=== PATIENT | male | born 1930 | race Caucasian/White ===

== ENCOUNTER 2018-08-08 11:57 | Inpatient (IN) | payer OTHER ==
[~2018-08-08] VITALS: Ht 177.8 cm; Wt 86.2 kg
--- NOTE | ~2018-08-08 | H ---
[facility] [place] [address] HISTORY AND PHYSICAL Name: RAYMOND KAUFMAN Room #: 505-P ADM IN M.R.#: [id number] Admission: 08/08/18 Attend Phys: Oral Day MD Discharge: Date of : [birth year] Report #: [id number] THIS REPORT FOR: //name// CC: Harrison Day DATE OF SERVICE: 08/08/2018 POSTADMISSION PHYSICIAN EVALUATION HISTORY OF PRESENT ILLNESS: Please see Yocasta Franklin's full admission history and physical. The patient was transferred from [facility] and has end-stage renal disease, now on hemodialysis, combined systolic and diastolic congestive heart failure with bilateral lower extremity edema, cardiomyopathy, coronary artery disease, history of V-tach cardiac arrest, status post automatic implantable cardioverter defibrillator. He has premorbid peripheral neuropathy and history of lower extremity cellulitis. He is admitted with medical complexity and generalized debilitation. Please see the above noted past medical history, habits, and social history. He does live by himself and has a son who lives in [facility]. He was using a cane for short distances premorbidly and a walker longer distances. REVIEW OF SYSTEMS: No current complaints of chest pain, shortness of breath or abdominal discomfort. Notes some complaints of generalized overall weakness. PHYSICAL EXAMINATION: CHEST: Sounded clear to auscultation. CARDIOVASCULAR: Regular rate and rhythm. ABDOMEN: Bowel sounds are positive, nontender. NEUROMUSCULOSKELETAL: Upper and lower body strength are grade 4-/5. He is contact assistance for [id number], tends to fatigue fairly quickly. He does have some decreased sensation to light touch on bilateral distal lower extremities. ASSESSMENT AND PLAN: As noted. From a postadmission physician evaluation perspective, there are no relevant changes since the preadmission screening. Please see the above review of prior and current medical and functional conditions and comorbidities. The patient is at a lower functional level from his premorbid status, needs more assistance with mobility, fatigues more easily, and has the multiple medical comorbidities. As far as risk of complications, see the above noted list of comorbidities. He will be seen by the party plan sales consultant physicians for his medical care while on the rehab zhang. The initial plan of care involves the interdisciplinary acute inpatient rehabilitation program with the goal of maximizing his functional [address] [address] HISTORY AND PHYSICAL Name: RAYMOND KAUFMAN Room #: 505-P [facility] IN .R.#: [id number] Admission: 08/08/18 Attend Phys: Oral Day MD Discharge: Date of : [birth year]/19/[birth year] Report #: [id number] independence, so he can return back to the home setting. Measurable functional goals would be for the patient to become modified independent with transfers, mobility, ADLs at least at a walker level, so that he can return back to the home setting. Prognosis is reasonably good with estimated length of stay probably at least 7-10 days depending progress. Potential barriers would include his multiple medical comorbidities and decreased functional status. The patient meets diagnostic criteria for an acute in-hospital inpatient rehabilitation stay. He meets the medical necessity criteria and we will have the party plan sales consultant physicians continue to follow. He does have the tolerance for therapies and has appropriate discharge goals back to the home setting. <ELECTRONICALLY SIGNED> By: Oral Day MD 08/16/18 1048 [id number] Oral Day MD /nt
--- NOTE | ~2018-08-08 | H ---
[facility] [place] [address] HISTORY AND PHYSICAL Name: RAYMOND KAUFMAN Room #: 505-P ADM IN M.R.#: [id number] Admission: 08/08/18 Attend Phys: Oral Day MD Discharge: Date of : [birth year] Report #: [id number] THIS REPORT FOR: //name// CC: Harrison Day DATE OF SERVICE: 08/08/2018 HISTORY OF PRESENT ILLNESS: This is an 87-year-old gentleman who presented to [facility] with worsening shortness of air, worsening lower extremity edema. He was diagnosed with [id number]-vn-[id number] renal failure, lower extremity cellulitis and CHF exacerbation. He was seen by Nephrology. He was treated with diuretics. Kidney function to the point of needing dialysis and end-stage renal disease. A tunneled dialysis catheter in the right jugular was placed and he was started on Tuesday, Tuesday, Tuesday dialysis. His shortness of air improved. His lower extremity edema has improved. He is not on antibiotic. Due to decline in functional mobility, he is now admitted to [facility] acute inpatient rehabilitation for physical and occupational therapies. Today, the patient reports shortness of air with exertion. He does have fatigue with activity. He denies acute pain. He denies constipation, abdominal pain, nausea or dysuria. He still makes urine. He thinks his lower extremity edema is improved, but not resolved. PAST MEDICAL HISTORY: Coronary artery disease with history of non-STEMI, history of V-tach with resuscitation and a defibrillator placed, hypertension, hyperlipidemia, allergies seasonal, chronic kidney disease. HABITS: He is a nonsmoker, nondrinker, no illicit drug use. SOCIAL HISTORY: He is a . He lives in a house alone. He does have a son who is supportive, but does not live nearby. He has one entry stair from the front. He has 2 stairs to enter from the garage access, all living on one level. Once inside, he used single point cane for short distances as needed. He used a 4-wheel walker for longer community distances. He was independent with all ADLs and IADLs present to admission, he was still doing his own driving and shopping. MEDICATIONS: Potassium 20 mEq daily, lisinopril 20 mg daily, aspirin 81 mg daily, amiodarone 200 mg daily, metoprolol 25 mg twice a day, lactobacillus 1 capsule twice a day, senna 2 mg daily p.r.n., Colace 100 mg twice a day p.r.n., bisacodyl suppository p.r.n., Silvadene cream 1 gram daily p.r.n., Tylenol 650 q.6h. p.r.n. REVIEW OF SYSTEMS: Remainder of his 12-point review of systems is negative except as listed in HPI. [address] [address] HISTORY AND PHYSICAL Name: RAYMOND KAUFMAN Room #: 505-P ADM IN M.R.#: [id number] Admission: 08/08/18 Attend Phys: Oral Day MD Discharge: Date of : [birth year]/19/[birth year] Report #: [id number] PHYSICAL EXAMINATION: GENERAL: The patient is awake, alert. He is oriented x 4, does have a flat affect. He is in no acute distress. He is on room air. HEENT: Head is normocephalic. Eyes: EOMs are intact. No icterus. ENT: No sinus tenderness. CHEST: Lungs are clear to auscultation bilaterally. No crackles, no wheeze. CARDIAC: S1, S2 regular rate and rhythm. ABDOMEN: Bowel sounds are positive. Soft, nontender, nondistended. GENITOURINARY: No CVA tenderness. SKIN: He has a right tunneled catheter access. Dressing is clean, dry and intact. NEUROLOGIC: Cranial nerves 2-12 grossly intact. Face is symmetrical. EXTREMITIES: He has functional range of motion in bilateral upper and lower extremities. Equal strength bilaterally. Upper extremity strength grossly 4-4+/5. No clonus. Negative Homans sign. No foot drop. He sit to stand with contact guard assist. He is ambulating with a four-wheeled walker min assist, shuffling gait had been noted. He requires verbal cues for hand placement on the walker, easily fatigued with activity. Does have decreased sensation in bilateral lower extremities. Bilateral lower extremities with erythema, no warmth, positive edema. He has Tubigrip in place. ASSESSMENT: 1. Medical complexity with generalized debilitation. 2. End-stage renal disease, now on hemodialysis. 3. Combined systolic and diastolic congestive heart failure with bilateral lower extremity edema. 4. Cardiomyopathy with ejection fraction 40%-45%. 5. Coronary artery disease. 6. Hypertension. 7. Hyperlipidemia. 8. History of ventricular tachycardia/cardiac arrest, status post automatic implantable cardioverter defibrillator implantation. 9. Premorbid peripheral neuropathy. 10. Anemia. 11. Lower extremity cellulitis. PLAN: The patient has been admitted to acute inpatient rehabilitation for physical and occupational therapies. We will consult hospitalist services for medical management. We will consult Nephrology for dialysis management. He will have neuropsychology testing as the patient was working up until 2-[address] [address] HISTORY AND PHYSICAL Name: RAYMOND KAUFMAN Room #: 505-P ADM IN M.R.#: [id number] Admission: 08/08/18 Attend Phys: Oral Day MD Discharge: Date of : [birth year]/19/[birth year] Report #: [id number] prior, had a very high level of functioning. We will plan to have a team conference next Tuesday. Please see orders. <ELECTRONICALLY SIGNED> By: ISAURO Schwarz 08/15/18 1504 [id number] ISAURO Schwarz /nt
--- NOTE | ~2018-08-08 | HC ---
[facility] [place] [address] CONSULTATION Name: RAYMOND KAUFMAN Room #: 505-P [facility] IN M.R.#: [id number] Admission: 08/08/18 Attend Phys: Oral Day MD Discharge: 08/18/18 Date of : [birth year] Report #: [id number] THIS REPORT FOR: //name// CC: Harrison Day DATE OF SERVICE: 08/13/2018 NEUROBEHAVIORAL STATUS EXAM ATTENDING PHYSICIAN: Oral Day MD. REINFORCED CONCRETE INSPECTOR: Danilo Kurtz, PhD. CLINICAL PRESENTATION: The patient is an 87-year-old male admitted to the [facility] for an inpatient rehabilitation program to improve functional mobility, activities of daily living and self-care and mental status secondary to deficits from medical complexity and general debility. He carries the diagnosis of end-stage renal disease and is on hemodialysis. He has combined systolic and diastolic congestive heart failure with bilateral lower extremity edema, cardiomyopathy, coronary artery disease, hypertension, hyperlipidemia, history of ventricular tachycardia/cardiac arrest and status post automatic implantable cardioverter defibrillator, premorbid peripheral neuropathy, anemia and lower extremity cellulitis. A complete description of his medical condition and history can be found in his medical record. Neuropsychological consultation was requested to provide assistance in the assessment of cognitive and emotional status and to provide recommendations and services. Prior to this most recent admission, the patient was living independently in his own home. He has been working. 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 He had one child. The patient is , was 6 years ago. His was diagnosed with cancer and 10 days later. The patient was independent with instrumental activities of daily living, working, driving, managing his finances and medication. TECHNIQUES UTILIZED: Clinical interview, review of medical records, staff consultation and behavioral observation, mini mental status exam 2 standard version, clock drawing, verbal fluency assessment and abstract reasoning assessment. EXAMINATION FINDINGS: The patient was alert and cooperative with the assessment. He accurately described events surrounding his admission and the [facility] [address] [place] [address] CONSULTATION Name: RAYMOND KAUFMAN Room #: 505-P [facility] IN M.R.#: [id number] Admission: 08/08/18 Attend Phys: Oral Day MD Discharge: 08/18/18 Date of : [birth year] Report #: [id number] reason for the initial hospitalization. Current symptoms are described as difficulty with sleep. He does not report problems with appetite, cognitive functioning or anxiety. He attributes changes in memory and word finding as a result of normal aging. His performance on the MMSE 2 brief version is within normal limits with a raw score of 15 of 16, which is a T score of 54. Performance on the MMSE 2 standard version is within normal limits with a T score of 48. Deficits were noted in serial sevens with 3 of 5 correct. The patient had difficulty in copying a simple geometric design. Clock drawing is within normal limits. Letter fluency was within normal limits with a raw score of 18 and a T score of 49. Category fluency is within normal limits with a raw score of 38 and a T score of 59. Overall, total verbal fluency was within normal limits with a raw score of 56 and a T score of 54. Brief abstract reasoning test suggest deficits with a raw score of 4 of 8. The patient is alert and oriented. Immediate recall is satisfactory. Deficits are most likely in higher level executive functioning that may affect planning and problem solving. He is not reporting anxiety or depression. This type of presentation can suggest a mild neurocognitive disorder that is associated with kidney disease. 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 RECOMMENDATIONS: The patient would benefit from increased assistance in the management of his medical condition and include home health support services. Assisted living would be preferable. A more thorough neuropsychological assessment as an outpatient is an option to clarify severity of cognitive deficits. While the patient does not appear to be presenting with dementia, mild neurocognitive disorder can affect higher level planning and problem solving. Thank you very much for allowing me to provide the consultation on this patient. <ELECTRONICALLY SIGNED> By: Danilo Kurtz, PhD 08/20/18 1815 1229 [id number] Danilo Kurtz, PhD /nt
--- NOTE | ~2018-08-08 | PLAN ---
[facility] [place] [address] REHAB UNIT PLAN OF CARE Name: RAYMOND KAUFMAN Room #: 505-P ADM IN M.R.#: [id number] Admission: 08/08/18 Attend Phys: Oral Day MD Discharge: Date of : [birth year] Report #: [id number] THIS REPORT FOR: //name// CC: Harrison Day DATE OF SERVICE: 08/11/2018 PROGRESS NOTE/OVERALL PLAN OF CARE SUBJECTIVE: The patient is seen back today in followup. He is in no distress. OBJECTIVE: VITAL SIGNS: Temperature 97.1, pulse 61, respirations 18, blood pressure is 130/57. GENERAL: He is pleasant. HEENT: Appeared to be benign. LOWER EXTREMITIES: He does have chronic skin changes, appears venous stasis. He has swelling with changes consistent with chronic lymphedema. NEUROMUSCULOSKELETAL: Functionally, he is transferring with standby assist and ambulates 200 feet min assist with a front-wheeled walker, 8-steps min assist. Lower body dressing has been min assist. In speech therapy, he has mild comprehensive deficits. Cognition is mild to moderate. ASSESSMENT: 1. Medical complexity with generalized debilitation. 2. End-stage renal disease, on hemodialysis. 3. Congestive heart failure with lower extremity edema. 4. Lower extremity cellulitis, status post antibiotics. 5. Cardiomyopathy with an ejection fraction of 40-45%. 6. Coronary artery disease. 7. Hypertension. 8. Hyperlipidemia. 9. History of ventricular tachycardia arrest, status post implantable defibrillator. 10. Premorbid peripheral neuropathy. 11. Anemia. 12. Qmfr-ov-czzvnura cognitive/memory deficits. PLAN: The overall plan of care is based on the preadmission screen, post-admission physician evaluation, and information garnered from therapy assessments. 1. Estimated length of stay is probably at least 7-10 days and likely longer as warranted. 2. Medical prognosis is reasonably good. 3. Anticipated interventions include the interdisciplinary acute inpatient [facility] [address] [place] [address] REHAB UNIT PLAN OF CARE Name: RAYMOND KAUFMAN Room #: 505-P ADM IN .R.#: [id number] Admission: 08/08/18 Attend Phys: Oral Day MD Discharge: Date of : [birth year] Report #: [id number] rehabilitation program with PT, OT, and speech, and rehab nursing assisting regarding medication management, skin care prophylaxis, bowel and bladder issues and nursing education. We will have the interdisciplinary rehab team involved as well as the search consultant physicians. 4. Anticipated functional outcomes would be for the patient to become modified independent with transfers and mobility issues at the walker level. 5. Discharge destination would be back to the home setting where he does live alone. He has a son who is supportive, but does not live nearby. He did not indicate anyone else who could stay with him. 6. Expected therapy by discipline includes PT, OT, and speech 1 hour per day each 5 days a week throughout the duration of the acute inpatient rehabilitation stay. By: [id number] Oral Day MD /jasvir
--- NOTE | ~2018-08-08 | HC ---
[facility] [place] [address] CONSULTATION Name: RAYMOND KAUFMAN Room #: 505-P ADM IN M.R.#: [id number] Admission: 08/08/18 Attend Phys: Oral Day MD Discharge: Date of : [birth year] Report #: [id number] THIS REPORT FOR: //name// CC: Harrison Dya DATE OF SERVICE: 08/08/2018 Nephrology Consultation ATTENDING PHYSICIAN: Oral Day MD REASON FOR CONSULTATION: Chronic kidney disease. HISTORY OF PRESENT ILLNESS: An 87-year-old gentleman with longstanding slowly progressive chronic kidney disease in the setting of known ischemic cardiovascular disease. Creatinine brittney to a level of 3.1, but he had refractory edema, so despite the lack of azotemia, he was started on dialysis last week at [facility]. He received 3 dialyses treatments and was transferred here for rehabilitation. PAST MEDICAL HISTORY: Coronary artery disease. He had history of v-tach, with resuscitation. He has a defibrillator. He had 2 stents placed, both in the obtuse marginal. Left circumflex stents placed in 11/2016. He has known ischemic cardiomyopathy with 40%-45% ejection fraction, history of hypertension, hyperlipidemia, and the AICD as mentioned. He has had previous meniscus surgery and hernia surgeries as well. SOCIAL HISTORY: Very remote, very small smoking history. No substantial alcohol. 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 CURRENT MEDICATIONS: Include only amiodarone 200 mg daily, aspirin 81 mg daily, lisinopril 20 mg daily, metoprolol 25 mg b.i.d. and interestingly, he is on potassium chloride without diuretic at the current time. REVIEW OF SYSTEMS: GENERAL: He is feeling well. EYES: Vision is reasonably good. ENT: Hearing okay, swallows okay. No mouth ulcers. ENDOCRINE: No diabetes or thyroid disease. RESPIRATORY: No shortness of breath, wheezing, asthma or orthopnea. CARDIAC: No chest pain, angina or palpitations. GASTROINTESTINAL: No nausea, vomiting, diarrhea, bloody stools. GENITOURINARY: Pretty good urinary stream without dysuria, hematuria or renal stones. [facility] [address] [place] [address] CONSULTATION Name: RAYMOND KAUFMAN Room #: 505-P [facility] IN .R.#: [id number] Admission: 08/08/18 Attend Phys: Oral Day MD Discharge: Date of : [birth year] Report #: [id number] NEUROLOGIC: No seizure, syncope or stroke. MUSCULOSKELETAL SKELETAL: He has had refractory and very difficult leg swelling, which has led to some sores and ulcers on his legs as well. PHYSICAL EXAMINATION: GENERAL: This is very well appearing patient, looking younger than his stated age, quite lucid and vigorous. SKIN: Unremarkable except for his lower extremities, which are wrapped with bandages. SKELETAL: Well-developed, well-nourished. HEENT: Extraocular movements are full. Vision intact. No scleral icterus. Hearing is intact. Mucous membranes moist. Tongue and buccal mucosa benign. NECK: Supple, no carotid bruits. CHEST: Clear to auscultation. HEART: Regular. ABDOMEN: Soft, nontender, without organomegaly. EXTREMITIES: Show very brawny lymphedema of the lower extremities. NEUROLOGIC: Shows him to be able to move all extremities. LABORATORY DATA: Pending. ASSESSMENT: 1. Chronic kidney disease. His creatinine was only 3.1 with an estimated glomerular filtration rate close to 20. He was started on dialysis more for volume indications than anything else. He has now had 3 dialysis treatments with some minor success and ultrafiltration. We will follow his labs. I will keep him on some diuretic. We will try to keep his legs up. We will try to get his legs up above the level of his heart as much as possible, get him on some compression stockings, possibly some lymphedema treatment and see if we can help the situation and we will certainly consider him for more dialysis treatments as indicated. 2. Ischemic cardiomyopathy, status post ventricular tachycardia arrest. 3. Automatic implantable cardioverter defibrillator. 4. Status post coronary stents times 2. 5. History of hypertension. 6. Refractory lower extremity edema. By: [id number] Ruiz Nguyễn MD /nt
[2018-08-08] MEDS ORDERED: PACERONE 200 M200 M1 PO (12:42)
[2018-08-08] MEDS ORDERED: POTASSIUM20 PO (12:43)
[2018-08-08] MEDS ORDERED: METOPROLOL TART25 MG PO (12:46)
[2018-08-08] MEDS ORDERED: PROBIOTIC1 EAC1 PO (12:47)
[2018-08-08] MEDS ORDERED: CHILDREN'S ASPI81 M1 PO (12:48)
[2018-08-08] MEDS ORDERED: LISINOPRIL20 MG PO (12:48)
[2018-08-08] MEDS ORDERED: NORCO 5-325 TA1 EACH PO ×2 (12:49→12:50)
[2018-08-08] MEDS ORDERED: TYLENOL325 MG PO (12:51)
[2018-08-08] MEDS ORDERED: ZYRTEC 10 MG TA10 MG PO (12:52)
[2018-08-08] MEDS ORDERED: LABETALOL20 MG/4 ML IV PUSH (12:54)
[2018-08-08] MEDS ORDERED: BENADRYL25 MG PO (12:55)
[2018-08-08 14:30] VITALS: BP 132/56
[2018-08-08 19:13] VITALS: BP 168/75
[2018-08-09 06:05] VITALS: BP 151/70
[2018-08-09 06:41] LABS: HEMATOCRIT 27.6 % (42.0-52.0); MCH 26.2 pg (26.0-34.0); MCHC 32.4 g/dL (28.0-37.0); MCV 80.7 fL (80.0-100.0); RBC 3.42 mil/uL (4.50-6.00); RDW 17.6 % (10.5-14.5); WBC 5.5 thou/uL (4.0-11.0)
[2018-08-09 06:54] LABS: ALBUMIN 2.7 g/dL (3.4-5.0); CALCIUM 8.6 mg/dL (8.5-10.1); PHOSPHORUS 5.3 mg/dL (2.5-4.9); POTASSIUM 5.1 mmol/L (3.5-5.1)
[2018-08-09 07:24] VITALS: BP 157/67
[2018-08-09 07:35] LABS: FOLIC ACID 16.5 ng/mL (8.6-58.9); TSH 2.925 uIU/mL (0.358-3.740)
[2018-08-09 19:15] VITALS: BP 149/57
[2018-08-10 06:42] LABS: ALBUMIN 2.5 g/dL (3.4-5.0); CALCIUM 8.4 mg/dL (8.5-10.1); CREATININE 4.2 mg/dL (0.7-1.3); PHOSPHORUS 5.8 mg/dL (2.5-4.9); POTASSIUM 4.4 mmol/L (3.5-5.1)
[2018-08-10 07:50] VITALS: BP 146/62
[2018-08-10 20:06] VITALS: BP 142/57
[2018-08-11 06:17] VITALS: BP 130/57
[2018-08-11 08:00] VITALS: BP 134/47
[2018-08-11 19:53] VITALS: BP 150/61
[2018-08-12 05:43] LABS: HEMATOCRIT 24.1 % (42.0-52.0); HEMOGLOBIN 7.7 gm/dL (14.0-18.0); MCH 25.8 pg (26.0-34.0); MCHC 31.8 g/dL (28.0-37.0); MCV 81.1 fL (80.0-100.0); PLATELET COUNT 142 thou/uL (150-400); RBC 2.98 mil/uL (4.50-6.00); RDW 17.9 % (10.5-14.5); WBC 4.6 thou/uL (4.0-11.0)
[2018-08-12 05:56] LABS: ALBUMIN 2.6 g/dL (3.4-5.0); CALCIUM 8.4 mg/dL (8.5-10.1); CREATININE 3.7 mg/dL (0.7-1.3); MAGNESIUM 1.9 mg/dL (1.8-2.4); POTASSIUM 4.5 mmol/L (3.5-5.1)
[2018-08-12 07:42] VITALS: BP 156/70
[2018-08-12 09:17] LABS: ABSOLUTE NEUTROPHILS 2.6 thou/uL (1.4-8.2)
[2018-08-12 09:18] LABS: OVALOCYTES 1+; SCHISTOCYTES OCCASIONAL
[2018-08-12 19:30] VITALS: BP 165/74
[2018-08-13 06:11] LABS: ALBUMIN 2.5 g/dL (3.4-5.0); CALCIUM 8.3 mg/dL (8.5-10.1); CREATININE 4.2 mg/dL (0.7-1.3); PHOSPHORUS 5.7 mg/dL (2.5-4.9); POTASSIUM 3.7 mmol/L (3.5-5.1)
[2018-08-13 08:00] VITALS: BP 149/66
[2018-08-13 19:15] VITALS: BP 136/50
[2018-08-14 04:04] LABS: HEMATOCRIT 24.3 % (42.0-52.0); HEMOGLOBIN 7.7 gm/dL (14.0-18.0); MCH 25.1 pg (26.0-34.0); MCHC 31.8 g/dL (28.0-37.0); MCV 78.9 fL (80.0-100.0); RBC 3.08 mil/uL (4.50-6.00); RDW 17.4 % (10.5-14.5); WBC 5.2 thou/uL (4.0-11.0)
[2018-08-14 04:09] LABS: ALBUMIN 2.6 g/dL (3.4-5.0); CALCIUM 8.2 mg/dL (8.5-10.1); CREATININE 4.3 mg/dL (0.7-1.3); PHOSPHORUS 5.7 mg/dL (2.5-4.9); POTASSIUM 3.7 mmol/L (3.5-5.1)
[2018-08-14 04:16] LABS: % SATURATION 5 % (20-39); IRON 21 ug/dL (65-175); TIBC 382 ug/dL (250-450)
[2018-08-14 04:41] LABS: FOLIC ACID 17.8 ng/mL (8.6-58.9)
[2018-08-14 05:32] VITALS: BP 149/62
[2018-08-14 09:46] VITALS: BP 147/41; BP 148/54
[2018-08-14 20:46] VITALS: BP 165/70
[2018-08-15 00:06] LABS: HAV IgM AB (ANTI-HAV IgM) Negative (Negative); HEPATITIS B SURFACE AG Negative (Negative); HEPATITIS C VIRUS AB <0.1 (0.0-0.9)
[2018-08-15 05:24] VITALS: BP 145/64
[2018-08-15 06:17] LABS: ALBUMIN 2.5 g/dL (3.4-5.0); CALCIUM 8.4 mg/dL (8.5-10.1); CREATININE 4.3 mg/dL (0.7-1.3); PHOSPHORUS 5.9 mg/dL (2.5-4.9); POTASSIUM 3.6 mmol/L (3.5-5.1)
[2018-08-15 07:19] VITALS: BP 145/63
[2018-08-15 17:39] LABS: POTASSIUM 3.2 mmol/L (3.5-5.1)
[2018-08-15 17:40] LABS: MAGNESIUM 1.7 mg/dL (1.8-2.4)
[2018-08-15 17:42] LABS: CREATININE 2.6 mg/dL (0.7-1.3)
[2018-08-15 18:10] LABS: ABSOLUTE NEUTROPHILS 4.5 thou/uL (1.4-8.2); BASOPHILS 0.6 % (0.0-2.0); EOSINOPHILS 0.7 % (0.0-3.0); HEMOGLOBIN 8.2 gm/dL (14.0-18.0); LYMPHOCYTES 9.7 % (24.0-44.0); MCH 25.8 pg (26.0-34.0); MCHC 32.9 g/dL (28.0-37.0); MCV 78.2 fL (80.0-100.0); MONOCYTES 4.2 % (1.0-8.0); POLYS 84.8 % (36.0-66.0); RDW 17.9 % (10.5-14.5); WBC 5.3 thou/uL (4.0-11.0)
[2018-08-15 18:40] LABS: PLATELET COUNT 85 thou/uL (150-400)
[2018-08-15 19:30] VITALS: BP 129/47
[2018-08-16 08:30] VITALS: BP 135/57
[2018-08-16 13:55] VITALS: BP 135/57
[2018-08-16 20:00] VITALS: BP 146/63
[2018-08-17 05:40] LABS: HEMATOCRIT 22.1 % (42.0-52.0); HEMOGLOBIN 7.2 gm/dL (14.0-18.0); MCH 25.4 pg (26.0-34.0); MCHC 32.7 g/dL (28.0-37.0); MCV 77.7 fL (80.0-100.0); PLATELET COUNT 73 thou/uL (150-400); RBC 2.84 mil/uL (4.50-6.00); RDW 17.6 % (10.5-14.5); WBC 3.8 thou/uL (4.0-11.0)
[2018-08-17 05:59] LABS: CALCIUM 7.9 mg/dL (8.5-10.1); MAGNESIUM 1.8 mg/dL (1.8-2.4); POTASSIUM 3.5 mmol/L (3.5-5.1)
[2018-08-17 06:01] LABS: CREATININE 3.7 mg/dL (0.7-1.3)
[2018-08-17 06:30] LABS: ABSOLUTE NEUTROPHILS 2.1 thou/uL (1.4-8.2)
[2018-08-17 06:32] LABS: ANISOCYTOSIS 1+; HYPOCHROMASIA 1+; OVALOCYTES 1+
[2018-08-17 07:10] VITALS: BP 146/80
[2018-08-17 19:52] VITALS: BP 156/65
[2018-08-18 08:30] VITALS: BP 171/78
[2018-08-18] MEDS ORDERED: LOPRESSOR25 PO (09:32)
[2018-08-18] MEDS ORDERED: DEMADEX20 MG PO (09:32)
[2018-08-18] MEDS ORDERED: SSD CREAM 1% 5050 GM TOP (09:32)
[2018-08-18] MEDS ORDERED: MELATONIN5 M1 PO (09:32)
[2018-08-18] MEDS ORDERED: COLACE100 MG PO (09:32)
[2018-08-18] MEDS ORDERED: PROTONIX 20 MG20 M1 PO (09:32)
[2018-08-18] MEDS ORDERED: IRON325 PO (09:32)
[2018-08-18 11:33] VITALS: BP 135/57
[2018-08-18 11:37] VITALS: BP 135/57
[2018-08-18 11:40] VITALS: BP 135/57
[2018-08-18 16:16] VITALS: BP 135/57
== END 2018-08-18 19:54 | disposition home health service (06) | DRG 291 ==
PROVIDERS: Hospitalist; Nurse Practitioner; Nurse Practitioner Family; Physical Medicine & Rehabilitation
PROC: 5A1D70Z Performance of Urinary Filtration, Intermittent, Less than 6 Hours Per Day (ICD-10-PCS; principal; 2018-08-10)
PROC: 5A1D70Z Performance of Urinary Filtration, Intermittent, Less than 6 Hours Per Day (ICD-10-PCS; 2018-08-15)
PROC: 5A1D70Z Performance of Urinary Filtration, Intermittent, Less than 6 Hours Per Day (ICD-10-PCS; 2018-08-18)
DX: I13.2 Hypertensive heart and chronic kidney disease with heart failure and with stage 5 chronic kidney disease, or end stage renal disease (principal); I50.43 Acute on chronic combined systolic (congestive) and diastolic (congestive) heart failure; N18.6 End stage renal disease; N17.9 Acute kidney failure, unspecified; L03.116 Cellulitis of left lower limb; L03.115 Cellulitis of right lower limb; E46 Unspecified protein-calorie malnutrition; E78.5 Hyperlipidemia, unspecified; I42.0 Dilated cardiomyopathy; R53.81 Other malaise; I25.10 Atherosclerotic heart disease of native coronary artery without angina pectoris; Z60.2 Problems related to living alone; G62.9 Polyneuropathy, unspecified; D64.9 Anemia, unspecified; I25.5 Ischemic cardiomyopathy; F03.90 Unspecified dementia, unspecified severity, without behavioral disturbance, psychotic disturbance, mood disturbance, and anxiety; G47.00 Insomnia, unspecified; D69.6 Thrombocytopenia, unspecified; I89.0 Lymphedema, not elsewhere classified; Z90.49 Acquired absence of other specified parts of digestive tract; I25.2 Old myocardial infarction; Z68.27 Body mass index [BMI] 27.0-27.9, adult; Z95.5 Presence of coronary angioplasty implant and graft; Z86.74 Personal history of sudden cardiac arrest; Z99.2 Dependence on renal dialysis; Z95.810 Presence of automatic (implantable) cardiac defibrillator; Z79.899 Other long term (current) drug therapy; Z79.82 Long term (current) use of aspirin
CPT/HCPCS: 10112; 32100